=== PATIENT | male | born 1955 | race Caucasian/White ===

== ENCOUNTER 2023-11-22 19:45 | Inpatient (IN) | payer MEDICARE, BC, SELFPAY ==
[2023-11-22] VITALS (12 sets, daily range): BP systolic 156–218; BP diastolic 65–87; BMI 42.5; BMI 43.1
[2023-11-22] MEDS: DILAUDID 1 MG IV (13:21)
[2023-11-22 13:28] LABS: % Basophils 0.7 % (0-2); % Eosinophils 2.9 % (0-6); % Immature Granulocytes 0.3 % (0-0.5); % Lymphocytes 17.8 % (20.5-51.1); % Monocytes 8.6 % (1.7-9.3); % Neutrophils 69.7 % (42.2-75.2); Absolute Basophils 0.1 10^3/uL (0-0.2); Absolute Eosinophils 0.3 10^3/uL (0-0.7); Absolute Lymphocytes 1.6 10^3/uL (1.2-3.4); Absolute Monocytes 0.8 10^3/uL (0.1-0.6); Absolute Neutrophils 6.3 10^3/uL (1.4-6.5); Hematocrit 33.4 % (39.0-52.0); Hemoglobin 11.2 g/dL (13.0-18.0); Mean Corp Hgb Conc. 33.5 g/dL (33.0-37.0); Mean Corpuscular Hgb 31.3 pg (27.0-31.0); Mean Corpuscular Volume 93.3 fL (80.0-94.0); Mean Platelet Volume 9.6 fL (7.4-10.4); Nucleated Red Blood Cells % 0 % (-); Platelet Count 282 10^3/uL (130-400); Red Blood Cell Count 3.58 10^6/uL (4.70-6.10); White Blood Cell Count 9.1 10^3/uL (4.8-10.8)
[2023-11-22 13:50] LABS: ALT (SGPT) 20 U/L (0-50); AST (SGOT) 24 U/L (17-59); Albumin 3.4 g/dl (3.5-5.0); Alkaline Phosphatase 109 U/L (38-126); Blood Urea Nitrogen 66 mg/dl (9-20); Calcium 10.3 mg/dl (8.4-10.2); Carbon Dioxide 21 mmol/L (22-30); Chloride 108 mmol/L (98-107); Estimated Creatinine Clearance 41 ml/min; Glucose 123 mg/dl (70-99); Potassium 4.9 mmol/L (3.5-5.1); Sodium 137 mmol/L (135-145); Total Bilirubin 0.5 mg/dl (0.2-1.3); Total Protein 5.8 g/dl (6.3-8.2); eGFR 27.13
--- NOTE | 2023-11-22 13:56 | ED.GENMED ---
History of Present Illness
General
Chief Complaint: Back Pain
Source: patient
Exam Limitations: none
Time Seen by Provider: 11/22/23 12:30
Nursing documentation reviewed up to this point in time: agreed with
Travel History
Have you had any contact with someone who has COVID-19?: No
Do you have any symptoms of coronavirus? Fever > 100 degrees, chills, cough, shortness of breath, sore throat, loss of taste or smell, muscle aches, or headache?: No
History of Present Illness
History of Present Illness:
Patient is a 68-year-old male who was brought to the ER by daughter. Patient has a history of Charcot foot and several days ago while walking up steps he felt and heard a cracking in his right foot and then woke up the next morning with pain and
swelling. Since then he has also had back pain which radiates from his foot into his back and across his back. Because of the back pain he has been in bed for 3 days. Daughter reports he is not eating and drinking normally. He has been taking
Robaxin as well as ibuprofen.
He also has a chronic wound to right medial foot.
Daughter also notes that patient has redness to right lower leg she was unsure if this was because of swelling because of the injury. He has been treated for cellulitis in the past last time was in the fall. He was treated with doxycycline at that
time.
Past History
Past History
ED Past Medical History: NIDDM
ED Past Surgical History: None
Social History
Tobacco: Non-smoker
Alcohol: None
Review of Systems
Review of Systems
Allergies reviewed?: Yes
All Other Systems: ROS reviewed and negative except as documented in HPI and ROS
Constitutional: Reports no symptoms; Denies fever, fatigue or chills
Respiratory: Reports no symptoms
Cardiac: Reports no symptoms
ABD/GI: Reports no symptoms
Musculoskeletal: Reports back pain and other (right foot pain /swelling )
Skin: Reports no symptoms
Neurological: Reports no symptoms
Phy Exam
General Physical Exam
General Presentation: no apparent distress
General age: appears stated age
General Skin: warm and dry
General Habitus: elderly
General Mental: alert
General Hydration: appears well hydrated, dry mucous membranes, poor skin turgor and other
Cardiovascular Exam
Cardiovascular Exam: regular rate/rhythm, no murmur and normal peripheral pulses
Pulmonary Exam
Pulmonary Exam: lungs clear and no respiratory distress
Musculoskeletal Exam
Musculoskeletal Exam: other (Patient with obvious deformities to bilateral feet right foot with increased swelling no specific point tenderness swelling to ankle scattered mild erythema to lower leg no bony tenderness)
Course
Orders/Labs/Results
Orders:
Orders
11/22/23 13:08
IV Insert/Care/Rem.- Treatment PRN
Ankle, Right 3 view CR [CR Ankle - Right Min 3 Views *] Urgent
Comment:
Reason For Exam: trauma
Foot, Right 3 View [CR Foot - Right Min 3 Views] Urgent
Comment:
Reason For Exam: trauma
Venous Doppler Lwr Ext Rt [US Periph Venous LOWER Ext RT] Urgent
Comment:
Reason For Exam: swelling
11/22/23 13:09
HYDROmorphone [Dilaudid] 1 mg IV NOW STA
11/22/23 13:21
Complete Blood Count/With Diff Urgent
Comprehensive Metabolic Panel Urgent
11/22/23 16:46
Ankle, Right 3 view CR [CR Ankle - Right Min 3 Views *] Urgent
Comment:
Reason For Exam: weight bearing
11/22/23 18:06
HYDROmorphone [Dilaudid] 0.5 mg IV NOW STA
11/22/23 18:37
CeFAZolin 1 GRAM [Ancef] 1 gram in 5 ml IV NOW
11/22/23 18:41
Lactic Acid Q4H
Comment: CANCEL 2nd LACTIC ACID IF 1st LACTIC ACID IS LESS THAN 2
Blood Culture Q30M
DRISS Source: Blood/Venous
Specimen Description:
11/22/23 18:45
Blood Culture Q30M
DRISS Source: Blood/Venous
Specimen Description:
11/22/23 18:55
Admit/Transfer Patient As Directed
Co-Sign Provider:
Level of Care: Inpatient admission
Assign to:: Medical/Surgical
Physician / Group: billy
Diagnosis: right fibula fracture
Reason for Hospitalization: right fibula fracture
Expected length of stay greater than two midnights?: Yes
ELOS- Estimated Length of Stay in days: 2
I certify the patient meets the requirements for IP care: Yes
Code Status As Directed
Resuscitation Status: Full Code
11/22/23 22:15
Lactic Acid Q4H
Comment: CANCEL 2nd LACTIC ACID IF 1st LACTIC ACID IS LESS THAN 2
Abnormal Lab Results
11/22/23
13:21
RBC 3.58 L 10^6/uL
(4.70-6.10)
Hgb 11.2 L g/dL
(13.0-18.0)
Hct 33.4 L %
(39.0-52.0)
MCH 31.3 H pg
(27.0-31.0)
Absolute Monos (auto) 0.8 H 10^3/uL
(0.1-0.6)
Lymphocytes % 17.8 L %
(20.5-51.1)
Chloride 108 H mmol/L
(98-107)
Carbon Dioxide 21 L mmol/L
(22-30)
BUN 66 H mg/dl
(9-20)
Creatinine 2.5 H mg/dL
(0.7-1.3)
Glucose 123 H mg/dl
(70-99)
Calcium 10.3 H mg/dl
(8.4-10.2)
Total Protein 5.8 L g/dl
(6.3-8.2)
Albumin 3.4 L g/dl
(3.5-5.0)
11/22/23 13:21
11/22/23 13:21
Vital Signs
Initial and Last Documented VS:
Initial Vital Signs
Temp Pulse Resp BP Pulse Ox
98.5 F 75 20 189/74 98
11/22/23 11:47 11/22/23 11:47 11/22/23 11:47 11/22/23 11:47 11/22/23 11:47
Last Documented Vital Signs
Temp Pulse Resp BP Pulse Ox
98.5 F 74 16 218/85 96
11/22/23 11:47 11/22/23 14:43 11/22/23 14:43 11/22/23 16:00 11/22/23 16:45
MDM/Problems Addressed
Differential Diagnosis Includes:
not limited to: Muscular back pain, fracture to foot or ankle, dehydration
MDM/Problems Addressed:
Patient is a 68-year-old male with diabetes peripheral neuropathy Charcot bilateral feet who presented to the ER for evaluation. Several days ago patient was walking and heard a crack in his right foot leg. He since then has not been able to bear
weight and because his gait is off has had increasing back pain. Patient has had increasing swelling to the right foot and lower leg. X-rays done do show a distal fibula fracture. Patient does have peripheral neuropathy on exam is not truly
tender. Daughter also notes that her right leg has had worsening erythema and now swelling. Patient has had cellulitis in the past last treated in the fall. Ultrasound performed and negative. Patient does not have a fever and his white count is
normal.
Regarding fracture I spoke with orthopedics DR Pascal weightbearing views were done and there is more instability on weightbearing views he does recommend splint or boot however with patient's unstable gait with bilateral Charcot foot there is
high fall risk. Patient also has had some low back pain which presents muscular from having his gait off for the past several days and has required narcotic medication for this back pain. In addition patient has worsening renal function with a BUN
of 66 and a creatinine of 2.5. His last creatinine was 1.6 in March 2022.
Regarding redness to the right lower leg will order antibiotics
Will admit for pain management of back pain treatment of cellulitis of the right lower leg and orthopedic management of fibula fracture. I discussed with admitting hospitalist we will hold off on splinting until patient is evaluated by the
hospitalist service.
*Radiology
Radiology exam reviewed: radiology read reviewed (Fracture to the distal shaft of the right fibula without displacement or angulation)
*Critical Care Note
Total Time (30-74mins, 75-104mins- exclusive of procedures): Not Applicable
ED Attending Note
-
Portions of this chart may have been created with voice recognition software.� Occasional wrong word or��sound alike� substitutions may have occurred due to the inherent limitations of voice recognition software.
Discharge Plan
Departure
Patient Disposition: Admit
Date of Disposition: 11/22/23
Time of Disposition: 18:11
Admit to: Med/Surg
Admit to doctor: hospitalist
Presentation/result/management discussed w/ accepting MD/DO: Hospitalist
Patient with high blood pressure during this ER visit?: Yes
Condition: Fair
Covid-19: Not Applicable
Discharge Problem:
Fracture of distal end of fibula, renal insufficiency, Low back pain, cellulitis of right lower leg
Prescriptions:
No Action
atorvastatin [Lipitor] 10 mg Tablet
10 mg PO QPM
metformin 1,000 mg Tablet
1,000 mg PO QPM
allopurinol 300 mg Tablet
300 mg PO QPM
hydrochlorothiazide 25 mg Tablet
25 mg PO QPM
pioglitazone 30 mg Tablet
30 mg PO QPM
losartan 100 mg Tablet
100 mg PO QPM
coenzyme Q10 [CoQ-10] 100 mg Capsule
100 mg PO QPM
insulin glargine [Lantus Solostar U-100 Insulin] 100 unit/mL (3 mL) Insulin Pen
30 unit SC BID@1200,2200
Patient Comments:
Per patient took 44 units per order of preadmission staff
Completia
1 tab PO QPM
cholecalciferol (vitamin D3) [Vitamin D3] 25 mcg (1,000 unit) Tablet
25 mcg PO QPM Qty: 0
methocarbamol [Robaxin] 500 mg Tablet
500 mg PO QID PRN (Reason: mild pain)
halobetasol propionate 0.05 % Ointment
1 applic TOPICAL DAILY PRN (Reason: dermitis on shins)
ibuprofen 200 mg Capsule
600 mg PO Q6H PRN (Reason: mild pain)
vitamin E 268 mg (400 unit) Capsule
268 mg PO DAILY PRN (Reason: supplement)
metoprolol tartrate 25 mg tablet
50 mg PO QPM
Referrals:
Alberto Farrar MD [Family Provider] -
Interventions
Interventions:
*Risk Screen - Suicide Last Done: 11/22/23 15:14
*General Assessment Last Done: 11/22/23 12:08
*Neglect/Abuse Screening Last Done: 11/22/23 15:14
ED- Fall Risk Assessment Last Done: 11/22/23 12:08
*ED COVID-19 Vaccine History Last Done: 11/22/23 12:08
ED-Musculoskeletal Assessment Last Done: 11/22/23 12:12
--- NOTE | 2023-11-22 14:22 | EDRN ---
1400 VS recheck- pt out of dept
[2023-11-22] MEDS: DILAUDID 0.5 MG IV (18:42)
--- NOTE | 2023-11-22 19:00 | HPS.HSE ---
Addendum entered and electronically signed by Edwardo Choudhary MD 11/22/23 19:05:
Tylenol and Dilaudid for pain.
Original Note:
Family Physician
-
Family Physician: Alberto Farrar
Chief Complaint
-
right ankle pain
History of Present Illness
68-year-old male past medical history of diabetes, gout, hypertension, hypercholesteremia, kidney stones, obesity, Charcot foot, peripheral neuropathy, chronic wound to right medial foot, presenting with right foot and back pain. Several days ago
he was walking up steps and fell and he he heard a crack in his right foot and he woke up the next morning with pain and swelling of his ankle. Denies any fall or trauma. Since then he has been having foot pain radiating into his back across his
back. He has also noticed redness over the right ankle without pain since then. He has been in bed for the past 3 days due to the back pain and has been unable to bear weight on the foot. He is not eating and drinking properly. He denies any
fevers or chills.
He has a wound of his right medial foot over the site of a callus which has been managed by analytics intern. Wound is currently improving.
He has been prescribed clobetasol for dermatitis on his shins.
Medical History
Past Medical History
Past Medical History: Reports Other (diabetes, gout, hypertension, hypercholesteremia, kidney stones, obesity, Charcot foot, peripheral neuropathy, chronic wound to right medial foot)
Past Surgical History: Reports None
Social History
Tobacco: Non-smoker
Alcohol: None
Drug: None
Family History
Family History: Not pertinent
Allergies / Home Medications
Allergies reflects when Allergies were last updated in [employer]
Home Medications with original date entered in [employer]
Allergy/Medication List:
Allergies
Allergy/AdvReac Type Severity Reaction Status Date / Time
cat dander Allergy sneeze Verified 11/22/23 11:47
shellfish derived Allergy gout Verified 11/22/23 11:47
Home Medications
Completia 1 tab PO QPM 06/22/22
allopurinol 300 mg tablet 300 mg PO QPM 06/22/22
atorvastatin 10 mg tablet (Lipitor) 10 mg PO QPM 06/22/22
cholecalciferol (vitamin D3) 25 mcg (1,000 unit) tablet (Vitamin D3) 25 mcg PO QPM ##0 06/22/22
coenzyme Q10 100 mg capsule (CoQ-10) 100 mg PO QPM 06/22/22
hydrochlorothiazide 25 mg tablet 25 mg PO QPM 06/22/22
insulin glargine 100 unit/mL (3 mL) subcutaneous pen (Lantus Solostar U-100 Insulin) 30 unit SC BID@1200,2200 06/22/22
losartan 100 mg tablet 100 mg PO QPM 06/22/22
metformin 1,000 mg tablet 1,000 mg PO QPM 06/22/22
pioglitazone 30 mg tablet 30 mg PO QPM 06/22/22
halobetasol propionate 0.05 % topical ointment 1 applic topical DAILY PRN dermitis on shins 11/22/23
ibuprofen 200 mg capsule 600 mg PO Q6H PRN mild pain 11/22/23
methocarbamol 500 mg tablet 500 mg PO QID PRN mild pain 11/22/23
metoprolol tartrate 25 mg tablet 50 mg PO QPM 11/22/23
vitamin E 268 mg (400 unit) capsule 268 mg PO DAILY PRN supplement 11/22/23
Review of Systems
-
History Source: Patient
A 12 point ROS was completed and negative except as noted: Yes
Constitutional: Reports No Symptoms
EENT: Reports No Symptoms
Respiratory: Reports No Symptoms
Cardiac: Reports No Symptoms
Abdomen/GI: Reports No Symptoms
: Reports No Symptoms
Musculoskeletal: Reports No Symptoms
Skin: Reports See HPI
Neurological: Reports No Symptoms
Endocrine: Reports No Symptoms
Hematologic/Lymphatic: Reports No Symptoms
Psych: Reports No Symptoms
Physical Exam
Vital Signs
Vital Signs
Temp Pulse Resp BP Pulse Ox
98.5 F 74 16 218/85 96
11/22/23 11:47 11/22/23 14:43 11/22/23 14:43 11/22/23 16:00 11/22/23 16:45
Physical Exam
General: Well Developed, Well Nourished and No Apparent Distress
HEENT: NormoCephalic, Moist mucous membranes and Atraumatic
Respiratory: Clear
Cardiac: S1/S2 and Regular Rhythm; No Murmur or Rub
GI: Soft, Non Tender, Non Distended and Normal Bowel Sounds; No Organomegaly
Rectal: Deferred by Provider
Musculoskeletal: No Clubbing, No Cyanosis and No Edema
Skin: No Rash
Neuro: Nonfocal/grossly intact
Laboratory Results
-
11/22/23 13:21
11/22/23 13:21
Laboratory Results
Total Bilirubin 0.5 mg/dl (0.2-1.3) 11/22/23 13:21
AST 24 U/L (17-59) 11/22/23 13:21
ALT 20 U/L (0-50) 11/22/23 13:21
Alkaline Phosphatase 109 U/L (38-126) 11/22/23 13:21
Data Reviewed
-
Lab Data: Labs Reviewed by me
Old Records: Reviewed
Impression/Plan
-
IMPRESSION:
PLAN:
# Distal right fibular fracture
-Ortho consulted and recommending splinting
# Possible cellulitis of right lower extremity
-As per daughter erythema is new and not the dermatitis for which he has been taking clobetasol
-Cefazolin
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
-Creatinine 2.5 from 1.6
-Hold hydrochlorothiazide, losartan
-Hold NSAIDs
-IV fluids
# Hypertensive urgency secondary to pain
-Continue metoprolol
-Hold hydrochlorothiazide, losartan due to ARI
# Chronic right foot medial wound
-Appears to be shallow, does not appear infected
-Outpatient follow-up with podiatry
History of peripheral neuropathy/Charcot foot
Type 2 diabetes
-Continue Lantus 30 units twice daily
-Hold metformin, pioglitazone
-Insulin sliding scale
Gout
-Continue allopurinol
Essential hypertension
-Hold hydrochlorothiazide, losartan
Hypercholesterolemia
-Continue statin
Full code
DVT prophylaxis�heparin
Diabetic diet
[2023-11-22 19:11] LABS: Lactic Acid 0.8 mmol/L (0.7-2.0)
[2023-11-22] MEDS: ANCEF 5 IV (19:47)
--- NOTE | 2023-11-22 20:45 | PTCARENOTE ---
Pt arrive to unit able to SPT from stretcher to bed. Pt AAOx3 able to make needs known, denies pain at this time. RLE in splint. Pt reports he wears CPAP at HS but is refusing any intervention at this time. Pt oriented to room and hospital policies,
call raya within reach
[2023-11-22 21:32] LABS: Glucose - Point of Care 179 mg/dl (70-99)
[2023-11-22] MEDS: LIPITOR 10 MG PO (22:16)
[2023-11-22] MEDS: VITAMIN D3 (cholecalciferol) 25 MCG PO (22:16)
[2023-11-22] MEDS: HEPARIN SC (22:16)
[2023-11-22] MEDS: LOPRESSOR 50 MG PO (22:17)
[2023-11-22] MEDS: ZYLOPRIM 300 MG PO (22:18)
[2023-11-22] MEDS: LANTUS 0.299999999999999989 UNITS SC (22:45)
[2023-11-22] MEDS: NSS 1000 IV (22:45)
[2023-11-23] MEDS: DILAUDID 1 MG IV ×2 (01:51→10:10)
[2023-11-23 01:57] VITALS: BP 165/75
[2023-11-23] MEDS: ANCEF 5 IV ×3 (04:20→20:25)
[2023-11-23 05:11] LABS: % Basophils 0.6 % (0-2); % Eosinophils 3.1 % (0-6); % Immature Granulocytes 0.4 % (0-0.5); % Lymphocytes 19.9 % (20.5-51.1); Absolute Basophils 0.1 10^3/uL (0-0.2); Absolute Eosinophils 0.3 10^3/uL (0-0.7); Absolute Monocytes 0.9 10^3/uL (0.1-0.6); Absolute Neutrophils 6.6 10^3/uL (1.4-6.5); Hematocrit 33.5 % (39.0-52.0); Hemoglobin 11.1 g/dL (13.0-18.0); Mean Corp Hgb Conc. 33.1 g/dL (33.0-37.0); Mean Corpuscular Hgb 31.4 pg (27.0-31.0); Mean Corpuscular Volume 94.6 fL (80.0-94.0); Mean Platelet Volume 10.2 fL (7.4-10.4); Nucleated Red Blood Cells % 0 % (-); Platelet Count 295 10^3/uL (130-400); Red Blood Cell Count 3.54 10^6/uL (4.70-6.10); White Blood Cell Count 9.8 10^3/uL (4.8-10.8)
[2023-11-23 05:46] LABS: ALT (SGPT) 20 U/L (0-50); AST (SGOT) 25 U/L (17-59); Albumin 3.4 g/dl (3.5-5.0); Alkaline Phosphatase 110 U/L (38-126); Blood Urea Nitrogen 62 mg/dl (9-20); Calcium 10.2 mg/dl (8.4-10.2); Carbon Dioxide 20 mmol/L (22-30); Chloride 108 mmol/L (98-107); Estimated Creatinine Clearance 43 ml/min; Glucose 118 mg/dl (70-99); Potassium 4.9 mmol/L (3.5-5.1); Sodium 138 mmol/L (135-145); Total Bilirubin 0.3 mg/dl (0.2-1.3); Total Protein 5.7 g/dl (6.3-8.2); eGFR 28.49
[2023-11-23 07:32] LABS: Glucose - Point of Care 127 mg/dl (70-99)
[2023-11-23 07:35] VITALS: BP 176/79
[2023-11-23] MEDS: NSS 1000 IV ×2 (08:37→21:28)
[2023-11-23] MEDS: HEPARIN 5000 UNITS SC ×2 (08:42→20:29)
[2023-11-23 09:49] LABS: Glycohemoglobin (HgbA1c) 7.4 % (4.0-5.6)
--- NOTE | 2023-11-23 09:56 | CM ---
Reviewed the chart notes and spoke with the patient at the bedside. The patient resides with his spouse in a two story home with two steps to enter. The patient has a cane, shower bench, and a CPAP machine. The patient has had VN in the past, but
could not recall the name of the agency. The patient has not been to a SNF. The patient confirmed his pharmacy of choice is the [facility]. CM continues to be available to patient/family and is monitoring medical plan for needs at
discharge.
Plan: Discharge plans will depend on the patient's progress.
--- NOTE | 2023-11-23 10:02 | W.PN.HOSP.TC ---
Addendum entered and electronically signed by Ronda Russo MD 11/23/23 16:10:
Updated daughter on the phone
Original Note:
Today's Communication/Plan
-
see A/P
Assessment / Plan
Assessment / Plan
68-year-old male past medical history of diabetes, gout, hypertension, hypercholesteremia, kidney stones, obesity, Charcot foot, peripheral neuropathy, chronic wound to right medial foot, presented with right foot and back pain.� Several days ago he
was walking up steps and fell and he heard a crack in his right foot and he woke up the next morning with pain and swelling of his R ankle.�
Denies any fall or trauma.� Since then he has been having foot pain radiating into his back across his back.� He has also noticed redness over the right ankle.�He has been in bed for the past 3 days due to the back pain and has been unable to bear
weight on the foot. He is not eating or drinking properly.�He denies any fevers or chills.
He has a wound of his right medial foot over the site of a callus which has been managed by gravel wheeler.�Wound is currently improving.
He has been prescribed clobetasol for dermatitis on his shins.
A/P:
# Distal right fibular fracture
Ortho consulted and recommending splinting
PT OT eval
Pain control with Tylenol, oxycodone (pt does not want), IV Dilaudid PRN
Of note, RLE US neg for DVT
# Possible cellulitis of right lower extremity
Per daughter, erythema is new and not the dermatitis for which he has been taking clobetasol
Cont Cefazolin
Wound care CS
# ARI on CKD stage 3, likely prerenal ARI
Creatinine today at 2.4, was 2.5 on admission, baseline at around 1.6
Hold hydrochlorothiazide, losartan
Hold NSAIDs
IV fluids
# Hypertensive urgency secondary to pain
Change HYDRAULIC BILLET MAKER Toprol to Coreg 12.5 mg BID
Hold hydrochlorothiazide, losartan due to ARI
# nausea/vomiting following coughing spell
SPL eval
can also check COVID
Zofran PRN
# Chronic right foot medial wound
Appears to be shallow, does not appear infected
Outpatient follow-up with podiatry
# History of peripheral neuropathy/Charcot foot
# Type 2 diabetes
Continue Lantus 30 units twice daily
Hold metformin, pioglitazone
Insulin sliding scale
# Gout
Continue allopurinol
# Hypercholesterolemia
Continue statin
Full code
DVT prophylaxis�heparin
Diabetic diet
DW RN
called to update, call not answered
Anticipated Discharge: 24 - 48 hours
Subjective/Interval History
-
Date of Service: November 23, 2023
Objective Data
-
Labs:
Laboratory Results
11/23/23
03:43
WBC 9.8
Hgb 11.1 L
Hct 33.5 L
Plt Count 295
Sodium 138
Potassium 4.9
Chloride 108 H
Carbon Dioxide 20 L
BUN 62 H
Creatinine 2.4 H
Glucose 118 H
Calcium 10.2
Total Bilirubin 0.3
AST 25
ALT 20
Alkaline Phosphatase 110
Vital Signs:
Vital Signs
Temp Pulse Resp BP Pulse Ox
36.7 C 111 19 176/79 95
11/23/23 07:35 11/23/23 07:35 11/23/23 07:35 11/23/23 07:35 11/23/23 07:35
I&O
11/22/23 11/23/23 11/24/23
06:59 06:59 06:59
Intake Total 1480 / 1480
Output Total 800 / 800
Balance 680 / 680
Review of Systems
-
All other systems: Reviewed and negative
Physical Exam
-
General: Well Developed, Well Nourished, No Apparent Distress, Comfortable, Conversant and Morbidly Obese; Negative Respiratory Distress
HEENT: Normocephalic, Atraumatic, Nose Appears Normal and Ears Appear Normal; Negative Oxygen
Respiratory: Clear to Auscultation and Non Labored Respirations; Negative Accessory Resp Muscle Use
Cardiac: Regular Rhythm and S1/S2
GI: Soft, Nontender, Nondistended and Normal Bowel Sounds
Skin: Warm and Dry
Neuro: Awake, Alert, Oriented and AO x 3
Psych: Calm and Intact Judgement/Insight
Data Reviewed
-
Ultrasound: Report Reviewed by me
Labs: Labs Reviewed by me
[2023-11-23] MEDS: COREG 12.5 MG PO ×2 (11:35→20:28)
[2023-11-23 12:35] LABS: COVID-19 Antigen Negative (Negative)
[2023-11-23 12:51] LABS: Glucose - Point of Care 135 mg/dl (70-99)
[2023-11-23] MEDS: LANTUS 0.299999999999999989 UNITS SC ×2 (13:08→21:32)
--- NOTE | 2023-11-23 14:00 | WOUNDNOTE ---
[facility] RN note: Patient seen around 11:45am. Patient admitted with R distal fibular fracture. RLE splint with Anup wrap in place. Ortho consulted. Patient lives with his .
See H&P for complete history.
PMH: DM, gout, HTN, kidney stones, obesity, Charcot foot, neuropathy, chronic R plantar medial foot wound/callus who is managed by [facility] Dr. Oc Iglesias from [place], stasis dermatitis (uses topical steroid Clobetasol cream prn), CKD.
Wound Location and type/assessment: Patient admitted with: R plantar foot healing vs newly healed diabetic ulcer with callus however, not able to assess d/t RLE splint with Anup wrap. Ortho has not seen patient yet. Patient stated it hasn't had
drainage for the past week and current local care has been: clean with wound cleanser, Iodosorb gel, alginate, silicone border foam, change q other day. Skin on L heel intact, mild blanchable red. Coccyx crease mild red r/t moisture. Mild groin fold
MASD.
Appetite: on 2000 roger diet.
Pressure redistribution devices in place: [employer] Accumax. Patient is able to turn self in bed. He mentioned he has his L foot orthotic and he is planning to get new orthotics.
Plan: Patient refused R heel to be elevated off bed including after explanation of risk of a heel pressure injury. Patient is able to lift heel off the bed. Instructed patient frequent heel lift exercises. He allowed L heel to be elevated off bed.
Instructed patient frequent turning and repositioning. Will order miconazole powder and bariatric air chair cushion. Discussed with Dr. Russo re: unable to visualize R plantar foot until clarify if nursing may remove his RLE splint. [place] texted
Socorro Archer who placed the RLE splint order in re: is nursing can remove RLE splint for R foot wound care; Socorro responded to ask Ortho. Hiram texted Dr. Adolfo Pascal asking re: if nursing care remove RLE splint for wound care and WB status
RLE. Will await ortho response and follow up later today or tomorrow after clarification of RLE splint removal for wound care and clarify RLE weight bearing status. Discussed with CARI Arechiga.
Care plan to be updated and will follow as needed. Patient to follow up with his [facility] marker.
--- NOTE | 2023-11-23 14:44 | WOUNDNOTE ---
[facility] RN note: Confirmed with Dr. Adolfo Pascal, orthopedic surgeon that nursing care remove patient's RLE splint for wound care and he is RLE NWB.
--- NOTE | 2023-11-23 15:16 | WOUNDNOTE ---
RLE (ANTERIOR LATERAL)
--- NOTE | 2023-11-23 15:17 | WOUNDNOTE ---
R PLANTAR MEDIAL FOOT
[2023-11-23 15:45] VITALS: BP 127/80
[2023-11-23] MEDS: ZOFRAN 4 MG IV (15:53)
[2023-11-23 16:30] VITALS: BP 171/88; PULSE 79
[2023-11-23] MEDS: ULTRAM 50 MG PO (16:47)
[2023-11-23 16:58] VITALS: BP 171/88; PULSE 79
[2023-11-23 17:00] LABS: Glucose - Point of Care 151 mg/dl (70-99)
[2023-11-23] MEDS: ZYLOPRIM 300 MG PO (17:39)
[2023-11-23] MEDS: LIPITOR 10 MG PO (17:39)
[2023-11-23] MEDS: VITAMIN D3 (cholecalciferol) 25 MCG PO (17:39)
[2023-11-23] MEDS: DILAUDID 0.5 MG IV (17:45)
--- NOTE | 2023-11-23 18:21 | CON.ORTHO ---
Consultation - Orthopedics
History
HPI: 68-year-old male history of Charcot arthropathy, diabetes presented to the [facility] emergency department with complaints of right lower extremity ankle and leg pain. He was subsequently diagnosed with a distal fibula fracture with evidence
of medial ligamentous instability on weightbearing views. He was subsequently admitted to the hospitalist service for pain control and worsening renal function. Orthopedics consulted for further evaluation and treatment of his right ankle
fracture. Patient ports that he has been dealing with Charcot arthropathy bilateral lower extremities for about 35 years. He has been following with the same it infrastructure architect for many years. He does have a medial based foot wound that he has been
having treated by his it infrastructure architect with frequent debridements recently. He cannot recall any recent trauma or injury. He notes that on Tuesday he started to have a sensation of clicking in his right ankle that progressively worsened to the point
where he had significant pain and was having difficulty bearing weight. He admits to significantly altered sensation bilateral lower extremities as well as longstanding foot deformities and ankle deformity for which she wears orthotics only. He
does report the diabetes is well-controlled and A1c under 7
Allergies / Home Medications
Past medical history: Diabetes, gout, hypertension, hypercholesterolemia, obesity, Charcot arthropathy, peripheral neuropathy
Past surgical history: None reported
Social history: Non-smoker, lives with , retired
Family history: Not pertinent
Allergy/AdvReac Type Severity Reaction Status Date / Time
cat dander Allergy sneeze Verified 11/22/23 11:47
shellfish derived Allergy gout Verified 11/22/23 20:55
shrimp Allergy GOUT Verified 11/22/23 20:55
Medication Instructions Recorded
Completia 1 tab PO QPM Supplement 06/22/22
allopurinol 300 mg tablet 300 mg PO QPM Gout 06/22/22
atorvastatin 10 mg tablet (Lipitor) 10 mg PO QPM High Cholesterol 06/22/22
cholecalciferol (vitamin D3) 25 25 mcg PO QPM Supplement ##0 06/22/22
mcg (1,000 unit) tablet (Vitamin
D3)
coenzyme Q10 100 mg capsule 100 mg PO QPM Supplement 06/22/22
(CoQ-10)
hydrochlorothiazide 25 mg tablet 25 mg PO QPM Blood Pressure 06/22/22
insulin glargine 100 unit/mL (3 30 unit SC BID@1200,2200 Diabetes 06/22/22
mL) subcutaneous pen (Lantus
Solostar U-100 Insulin)
losartan 100 mg tablet 100 mg PO QPM Blood Pressure 06/22/22
metformin 1,000 mg tablet 1,000 mg PO QPM Diabetes 06/22/22
pioglitazone 30 mg tablet 30 mg PO QPM Diabetes 06/22/22
halobetasol propionate 0.05 % 1 applic topical DAILY PRN 11/22/23
topical ointment dermitis on shins
ibuprofen 200 mg capsule 600 mg PO Q6H PRN mild pain 11/22/23
methocarbamol 500 mg tablet 500 mg PO QID PRN mild pain 11/22/23
metoprolol tartrate 25 mg tablet 50 mg PO QPM Blood Pressure 11/22/23
vitamin E 268 mg (400 unit) capsule 268 mg PO DAILY PRN supplement 11/22/23
Vital Signs / Lab Results
Temp Pulse Resp BP Pulse Ox
98.3 F 98 17 127/80 94
11/23/23 15:45 11/23/23 15:45 11/23/23 15:45 11/23/23 15:45 11/23/23 15:45
11/23/23 03:43
11/23/23 03:43
ROS: 10 point review of systems reviewed and negative as otherwise stated
General: Pleasant, resting comfortably supine in bed
Musculoskeletal right lower extremity
Splint in place right foot and ankle, this was windowed and wound over medial foot has been dressed with dressing in place, skin overlying lateral ankle and fibula intact
Very limited to essentially no sensation to light touch exposed toes and foot
Positive EHL, FHL, ankle dorsiflexion, plantarflexion
Significant pes planus valgus deformity with significant external rotation noted
There is some tenderness palpation although very mild an area of fracture overlying distal fibula
Diagnostic studies
X-rays right ankle independently viewed by myself that show [place] C lateral malleolus fracture. Weightbearing views do show medial joint space widening and significant valgus deformity of hindfoot. Lateral radiographs do show significant planus
deformity with collapse of arch. Calcification of the vessels posteriorly. There is some question on the official radiology read whether or not this represents an acute injury
Assessment / Plan
68-year-old male history of Charcot arthropathy, diabetes with minimal trauma now with unstable [place] C lateral malleolus fracture. I do think given the patient's pain in this area although mild to indicate that this is an acute injury despite no
significant trauma. I had a very long and detailed discussion the patient regarding diagnosis findings and treatment options. I explained to him that is difficult ascertain whether or not this represents an unstable ankle fracture given the
significant foot deformity and ankle deformity has been longstanding. Certainly the medial joint space widening and ligamentous instability could be chronic with more recent fibular fracture. Does follow with podiatry on outpatient basis and he
does report that his it infrastructure architect does perform surgery. Will be my recommendation to follow closely upon discharge with his it infrastructure architect to discuss treatment options whether or not this would represent a surgical option or nonsurgical option to include
bracing or total contact casting. For the time being I would recommend nonweightbearing to the right lower extremity in splint. Certainly continue wound checks and wound care with wound care team. DVT prophylaxis of choice will be recommended
while patient is nonweightbearing. Would recommend mobilization with physical therapy. Follow-up with podiatry within a week of discharge. All questions were addressed and answered.
[2023-11-23] MEDS: SENOKOT-S 1 TABLET PO (20:25)
[2023-11-23] MEDS: DESENEX/MITRAZOL/ZEASORB 1 APPLIC TOPICAL (20:29)
[2023-11-23 21:34] LABS: Glucose - Point of Care 148 mg/dl (70-99)
[2023-11-23 23:35] VITALS: BP 144/66
[2023-11-24] MEDS: ZOFRAN 4 MG IV (01:33)
[2023-11-24] MEDS: ANCEF 5 IV (03:35)
[2023-11-24] MEDS: DILAUDID 0.5 MG IV ×2 (03:35→10:46)
[2023-11-24 06:40] LABS: Hematocrit 34.3 % (39.0-52.0); Hemoglobin 11.1 g/dL (13.0-18.0); Mean Corp Hgb Conc. 32.4 g/dL (33.0-37.0); Mean Corpuscular Hgb 30.9 pg (27.0-31.0); Mean Corpuscular Volume 95.5 fL (80.0-94.0); Mean Platelet Volume 10.3 fL (7.4-10.4); Platelet Count 292 10^3/uL (130-400); Red Blood Cell Count 3.59 10^6/uL (4.70-6.10); Red Cell Dist. Width 14.1 % (11.5-14.5); White Blood Cell Count 9.6 10^3/uL (4.8-10.8)
[2023-11-24 07:09] LABS: Blood Urea Nitrogen 56 mg/dl (9-20); Calcium 10.2 mg/dl (8.4-10.2); Carbon Dioxide 19 mmol/L (22-30); Chloride 112 mmol/L (98-107); Estimated Creatinine Clearance 47 ml/min; Glucose 106 mg/dl (70-99); Magnesium 2.2 mg/dl (1.6-2.3); Potassium 4.9 mmol/L (3.5-5.1); Sodium 136 mmol/L (135-145); eGFR 31.63
[2023-11-24 07:45] VITALS: BP 176/97
[2023-11-24 08:46] LABS: Glucose - Point of Care 119 mg/dl (70-99)
[2023-11-24] MEDS: HEPARIN 5000 UNITS SC (08:55)
[2023-11-24] MEDS: SENOKOT-S PO (08:55)
[2023-11-24] MEDS: DESENEX/MITRAZOL/ZEASORB 1 APPLIC TOPICAL (09:09)
[2023-11-24] MEDS: COREG 12.5 MG PO (09:09)
--- NOTE | 2023-11-24 09:31 | W.PN.HOSP.TC ---
Addendum entered and electronically signed by Ronda Russo MD 11/25/23 17:55:
# Pathological fracture due to longstanding charcot arthropathy
Addendum entered and electronically signed by Ronda Russo MD 11/24/23 14:42:
total DC time 40 min
Original Note:
Today's Communication/Plan
-
DC home today with HH
Assessment / Plan
Assessment / Plan
68-year-old male past medical history of diabetes, gout, hypertension, hypercholesteremia, kidney stones, obesity, Charcot foot, peripheral neuropathy, chronic wound to right medial foot, presented with right foot and back pain.� Several days ago he
was walking up steps and fell and he heard a crack in his right foot and he woke up the next morning with pain and swelling of his R ankle.�
Denies any fall or trauma.� Since then he has been having foot pain radiating into his back across his back.� He has also noticed redness over the right ankle.�He has been in bed for the past 3 days due to the back pain and has been unable to bear
weight on the foot. He is not eating or drinking properly.�He denies any fevers or chills.
He has a wound of his right medial foot over the site of a callus which has been managed by animation artist.�Wound is currently improving.
He has been prescribed clobetasol for dermatitis on his shins.
A/P:
# Distal right fibular fracture
Ortho recc pt to follow closely with animation artist in 1 week to discuss treatment options (surgical option or nonsurgical option to include bracing or total contact casting).�
For now, nonweightbearing to the right lower extremity in splint.
DVT prophylaxis with HSQ while nonweightbearing.�
PT OT recc SNF vs , daughter has elected HH
Cont pain control with Dilaudid, will change IV to PO PRN. Informed about constipation and pt already has bowel regimen at home.
Of note, RLE US neg for DVT
# Possible cellulitis of right lower extremity
Per daughter, erythema is new and not the dermatitis for which he has been taking clobetasol
Cont Cefazolin for now, would not cont further Abx after discharge, follow up with PCP for continued monitoring
Cont wound care
# ARI on CKD stage 3, likely prerenal ARI
Creatinine today at 2.2, was 2.5 on admission, baseline at around 1.6
Hold hydrochlorothiazide, losartan
Hold NSAIDs
s/p IV fluids
monitor BMP outpt
# Hypertensive urgency secondary to pain
Changed F[employer] Toprol to Coreg 12.5 mg BID
add hydralazine 25 mg TID
Hold hydrochlorothiazide, losartan due to ARI
# nausea/vomiting following coughing spell
SPL eval
COVID neg
Zofran PRN
# Chronic right foot medial wound
Appears to be shallow, does not appear infected
Outpatient follow-up with podiatry
# History of peripheral neuropathy/Charcot foot
# Type 2 diabetes
Continue Lantus 30 units twice daily
resume metformin, pioglitazone following discharge
Insulin sliding scale
# Gout
Continue allopurinol
# Hypercholesterolemia
Continue statin
Full code
DVT prophylaxis�heparin SQ
Diabetic diet
DW daughter on TT
Anticipated Discharge: Today
Subjective/Interval History
-
Date of Service: November 24, 2023
Objective Data
-
Labs:
Laboratory Results
11/24/23
04:57
WBC 9.6
Hgb 11.1 L
Hct 34.3 L
Plt Count 292
Sodium 136
Potassium 4.9
Chloride 112 H
Carbon Dioxide 19 L
BUN 56 H
Creatinine 2.2 H
Glucose 106 H
Calcium 10.2
Vital Signs:
Vital Signs
Temp Pulse Resp BP Pulse Ox
36.7 C 82 18 176/97 97
11/24/23 07:45 11/24/23 07:45 11/24/23 07:45 11/24/23 07:45 11/24/23 07:45
I&O
11/23/23 11/24/23 11/25/23
06:59 06:59 06:59
Intake Total 1480 / 1480 1500 / 1500
Output Total 800 / 800 2084 / 2084
Balance 680 / 680 -585 / -585
Review of Systems
-
All other systems: Reviewed and negative
Physical Exam
-
General: Well Developed, Well Nourished, No Apparent Distress, Comfortable, Conversant and Morbidly Obese; Negative Respiratory Distress
HEENT: Normocephalic, Atraumatic, Nose Appears Normal and Ears Appear Normal; Negative Oxygen
Respiratory: Clear to Auscultation and Non Labored Respirations; Negative Accessory Resp Muscle Use
Cardiac: Regular Rhythm and S1/S2
GI: Soft, Nontender, Nondistended and Normal Bowel Sounds
Skin: Warm and Dry
Neuro: Awake, Alert, Oriented and AO x 3
Psych: Calm and Intact Judgement/Insight
Data Reviewed
-
Ultrasound: Report Reviewed by me
Labs: Labs Reviewed by me
--- NOTE | 2023-11-24 09:45 | PTOTSP ---
Speech Language Pathology
Pt seen for clinical bedside swallow evaluation. He reported baseline intermittent regurgitation from stomach, which he relates to his diabetes and use of CPAP machine. He reported that what he typically regurgitates appears to be mucous. He
reported associated nausea, which clears when he is able to bring up mucous. This appears to be GI related in nature.
This date, P.O. trials of regular solids and thin liquids provided. Adequate mastication, bolus formation, and A- P transit noted with no oral residue. No overt signs of aspiration.
Recommend:
(1) Regular solids/thin liquids
(2) General aspiration precautions
(3) Meds as tolerated
(4) Consider outpatient GI if symptoms persist or worsen
(5) HOG FEEDER to sign off. Please reconsult as indicated
[2023-11-24] MEDS: APRESOLINE 20 MG PO (10:47)
[2023-11-24 11:51] VITALS: BP 131/80
--- NOTE | 2023-11-24 12:29 | PN.CDI ---
CDI
- -
CDI:
Physician Documentation Request
Admit Date: 11/22/23 19:45
Dear Doctor Karan,
Please review the following and provide your response in the progress notes.
Clinical Indicators:
- 11/23 PN 'Distal right fibular fracture...nonweightbearing to the right lower extremity in splint'
- ER Physician 'patient was walking and heard a crack in his right foot'
- 11/21 H&P pmh Charcot foot
- 'Several days ago he was walking up steps and fell and he he heard a crack in his right foot'
- 11/22 Ortho 'significant foot deformity and ankle deformity has been longstanding'
- BMI 43.1
Please provide further specificity regarding the diagnosis of right fibular fracture:
Pathological fracture due to longstanding charcot arthropathy
Traumatic fracture
Due to a combination of trauma and a pathological process but the trauma alone would not likely have been sufficient to cause the fracture
Use of terms such as suspected, likely, concern for, or probable (associated with a specific diagnosis that is being evaluated, monitored, or treated as if it exists) are acceptable and can be coded in the inpatient setting, when documented at the
time of discharge.
Thank you,
Zackary Urena RN
CDI Specialist
Please use your independent medical judgment in providing your response.
--- NOTE | 2023-11-24 14:10 | W.DCSUMMARY ---
Discharge Summary
Discharge Data
Date of Admission: 11/22/23
Date of Discharge: 11/24/23
-
Pending Results: No
Hospital Course
Principal Diagnosis:
Distal right fibular fracture
Possible right lower extremity cellulitis
Acute kidney injury on chronic kidney disease stage III, acute kidney injury likely prerenal
Hypertensive urgency secondary to pain
Chronic Diagnoses:�
Chronic right foot medial wound
History of peripheral neuropathy/Charcot foot
IDDM
Gout, continue allopurinol
Hypercholesterolemia
Consultations:�
Orthopedic
Procedures:�
None
Clinical course:�
This is a 68-year-old male with past medical history as stated above, who presented with right foot/ankle pain following a mechanical fall.
Problem 1:
Distal right fibular fracture.
Per orthopedic, patient can follow-up closely with his nurse clinical outpatient within 1 week following discharge to discuss treatment options, which include surgical versus nonsurgical options such as bracing or total contact casting.�
Fr the time being, he should be nonweightbearing to the right lower extremity in splint.
He can continue with heparin subcu injection for DVT prophylaxis while nonweightbearing.�
He can continue with oral Dilaudid for pain control, informed to use sparingly and cautiously.
He was discharged home with home health.
Problem 2:
Possible cellulitis of right lower extremity.
The patient did receive cefazolin while in the hospital, antibiotic was not continued after discharge.
He can continue to follow-up with his PCP outpatient for this.
Problem 3:
ARI on CKD stage 3, likely prerenal ARI.
His creatinine trended down from 2.5 on admission to 2.5 on the day of discharge, baseline creatinine was around 1.6.
Due to his ARI on CKD, he was informed to discontinue hydrochlorothiazide, losartan and metformin.
He should also hold off on NSAIDs.
He can monitor his BMP outpt with his PCP.
Problem 4:
Hypertensive urgency secondary to pain.
His prior to admission Toprol was changed to Coreg (for better BP effect) and he can continue at 12.5 mg twice daily.
Hydralazine 25 mg 3 times daily was also added which she can continue going forward.
His prior to admission hydrochlorothiazide and losartan were discontinued due to his ARI/CKD.
As for the rest of his medical problems, they were stable during his hospital stay.
Discharge Plan
-
Patient Disposition: Home with Home Care
Discharge Diagnosis/Procedures: Distal right fibular fracture; acute kidney injury on chronic kidney disease stage III; Hypertensive urgency may be related to pain
Condition: Fair
Diet: As tolerated and Diabetic, Carb Controlled
Activity: As tolerated
Driving Restrictions: No driving
Wound Care: Wound Care Instructions :
R plantar foot-clean with wound cleanser (i.e. Vashe), Iodosorb gel, alginate, silicone border foam, change every other day and as needed for drainage. May remove RLE splint during wound care as per orthopedic surgeon.
Elevate heels off bed with pillow or air chair cushion.
NWB RLE
RLE splint.
Follow up with your nurse clinical within 1 week.
Activity Restrictions/Additional Instructions:
Follow closely with nurse clinical in 1 week to discuss treatment options (surgical versus nonsurgical option to include bracing or total contact casting).�
For now, nonweightbearing to the right lower extremity in splint.
Continue heparin subcu injection for deep vein thrombosis prophylaxis while nonweightbearing with ambulatory dysfunction.
Referrals:
Alberto Farrar MD [Family Provider] - in less than 1 week
Additional Discharge Medication Instructions: stop hydrochlorothiazide, losartan and metformin due to ARI
Your Toprol was changed Coreg 12.5 mg twice daily.
We have added hydralazine 25 mg three times a day (dose can be increased) to better control your blood pressure.
Continue heparin subcu injection for deep vein thrombosis prophylaxis while nonweightbearing with ambulatory dysfunction.
Take Dilaudid sparingly for pain control
Prescriptions:
New
hydralazine 10 mg Tablet
20 mg PO TID Qty: 90 0RF
carvedilol 12.5 mg Tablet
12.5 mg PO BID Qty: 60 0RF
hydromorphone [Dilaudid] 2 mg tablet
2 mg PO Q8H PRN (Reason: Pain) Qty: 10 0RF
heparin (porcine) 5,000 unit/mL (1 mL) cartridge
5,000 unit SC Q12H Qty: 50 0RF
Continued
atorvastatin [Lipitor] 10 mg Tablet
10 mg PO QPM
allopurinol 300 mg Tablet
300 mg PO QPM
pioglitazone 30 mg Tablet
30 mg PO QPM
coenzyme Q10 [CoQ-10] 100 mg Capsule
100 mg PO QPM
insulin glargine [Lantus Solostar U-100 Insulin] 100 unit/mL (3 mL) Insulin Pen
30 unit SC BID@1200,2200
Patient Comments:
Per patient took 44 units per order of preadmission staff
Completia
1 tab PO QPM
cholecalciferol (vitamin D3) [Vitamin D3] 25 mcg (1,000 unit) Tablet
25 mcg PO QPM Qty: 0
methocarbamol 500 mg Tablet
500 mg PO QID PRN (Reason: mild pain)
halobetasol propionate 0.05 % Ointment
1 applic TOPICAL DAILY PRN (Reason: dermitis on shins)
vitamin E 268 mg (400 unit) Capsule
268 mg PO DAILY PRN (Reason: supplement)
Discontinued
metformin 1,000 mg Tablet
1,000 mg PO QPM
hydrochlorothiazide 25 mg Tablet
25 mg PO QPM
losartan 100 mg Tablet
100 mg PO QPM
ibuprofen 200 mg Capsule
600 mg PO Q6H PRN (Reason: mild pain)
metoprolol tartrate 25 mg tablet
50 mg PO QPM
Discharge Orders:
Discharge Patient (As Directed); Ordered 11/24/23
Ordered By: Ronda Russo
Discharge Date and Time
Discharge Date/Time: 11/24/23 12:30
--- NOTE | 2023-11-25 08:04 | CM ---
met with patient with right fibula fx and wound rle.he is nwb on rle.patient is stable for discharge and physical therapy has recommended home [facility].patient has declined [facility] since his is a physical therapist and qasim is a math coach.he
is stable for dc katherin to follow up with his yard worker.patient signed medicare letter. family to transport home.
== END 2023-11-24 12:30 | disposition home or self-care (01) | DRG 543 ==
LOC: 2 SOUTH 19:45
PROVIDERS: Nurse Practitioner; ADMITTING PHYSICIAN Hospitalist; ATTENDING PHYSICIAN Internal Medicine; CONSULT PHYSICIAN Orthopaedic Surgery; EMERGENCY PHYSICIAN Emergency Medicine; FAMILY PHYSICIAN Family Medicine
DX: M84.461A Pathological fracture, right tibia, initial encounter for fracture (principal); L03.115 Cellulitis of right lower limb; N17.9 Acute kidney failure, unspecified; N20.0 Calculus of kidney; L30.9 Dermatitis, unspecified; N18.30 Chronic kidney disease, stage 3 unspecified; I16.0 Hypertensive urgency; M10.9 Gout, unspecified; I12.9 Hypertensive chronic kidney disease with stage 1 through stage 4 chronic kidney disease, or unspecified chronic kidney disease; E78.00 Pure hypercholesterolemia, unspecified; E11.42 Type 2 diabetes mellitus with diabetic polyneuropathy
CPT/HCPCS: 73610; 73630; 80048; 80053; 82962; 83036; 83605; 83735; 85025; 85027; 87040; 87811; 92610; 93971; 96374; 96376; 97162; 97166; 99285

== ENCOUNTER → 2024-03-29 12:30 | Outpatient (REF) | payer MEDICARE, BC, SELFPAY | LOC: RCS 12:30 | PROVIDERS: ATTENDING PHYSICIAN Physician Assistant; FAMILY PHYSICIAN Family Medicine | DX: I50.9 Heart failure, unspecified (principal); R60.0 Localized edema; E11.22 Type 2 diabetes mellitus with diabetic chronic kidney disease; N18.30 Chronic kidney disease, stage 3 unspecified | CPT/HCPCS: 93306; Q9950 ==

== ENCOUNTER → 2024-06-27 11:22 | Outpatient (REF) | payer MEDICARE, BC, SELFPAY | LOC: HWRAD 11:22 | PROVIDERS: ATTENDING PHYSICIAN Specialist; FAMILY PHYSICIAN Family Medicine | DX: N18.32 Chronic kidney disease, stage 3b (principal) | CPT/HCPCS: 76775 ==

== ENCOUNTER → 2025-02-05 13:16 | Outpatient (REF) | payer MEDICARE, BC, SELFPAY | LOC: RCS 13:16 | PROVIDERS: ATTENDING PHYSICIAN Internal Medicine Cardiovascular Disease; FAMILY PHYSICIAN Family Medicine | DX: R00.1 Bradycardia, unspecified (principal) | CPT/HCPCS: 93005 ==

== ENCOUNTER → 2025-02-14 10:03 | Outpatient (REF) | payer MEDICARE, BC, SELFPAY | LOC: RCS 10:03 | PROVIDERS: ATTENDING PHYSICIAN Internal Medicine Cardiovascular Disease; FAMILY PHYSICIAN Family Medicine | DX: I10 Essential (primary) hypertension (principal); R00.1 Bradycardia, unspecified | CPT/HCPCS: 93225; 93226 ==

== ENCOUNTER → 2025-03-26 13:40 | Outpatient (REF) | payer MEDICARE, BC, SELFPAY | LOC: RCS 13:40 | PROVIDERS: ATTENDING PHYSICIAN Internal Medicine Cardiovascular Disease; FAMILY PHYSICIAN Family Medicine | DX: I10 Essential (primary) hypertension (principal); Z76.89 Persons encountering health services in other specified circumstances; E11.311 Type 2 diabetes mellitus with unspecified diabetic retinopathy with macular edema; I42.8 Other cardiomyopathies; Z87.442 Personal history of urinary calculi; R10.9 Unspecified abdominal pain | CPT/HCPCS: 74176; 93306 ==